=== PATIENT | male | born 1995 | race Caucasian/White ===

== ENCOUNTER 2016-12-20 21:16 | Emergency (ER) | payer SELFPAY ==
[~2016-12-20] VITALS: Ht 167.6 cm; Wt 100.0 kg
[~2016-12-20 21:16] MED LIST: DICY10CA60 PO; ONDA4TAB35 PO
[2016-12-20 21:28] VITALS: Ht 167.6 cm; Wt 100.0 kg
--- NOTE | 2016-12-20 23:37 | ERD ---
ER Documentation Chief Complaint Chief Complaint RASH ON SCALP AND BOTH HANDS SINCE YESTERDA. NEW SOAP HPI 21-year-old male presents here in emergency department for rash over the body after her throat for the last 2 days, patient also has been having body aches and on and off fever. Patient does not have any sick contacts. ROS All systems reviewed and are negative except as per history of present illness. Medications Home Meds Active Scripts Ondansetron Hcl* (Zofran* ODT) 4 mg -ODT Tab.disper, 4 MG PO Q8 Y for NAUSEA AND /OR VOMITING, #30 TAB Prov:LYLE PITT CONTRACT ATTORNEY 05/26/15 Dicyclomine Hcl* (Bentyl*) 10 Mg Capsule, 10 MG PO QID for abdominal cramping, # 20 CAP Prov:LYLE PITT CONTRACT ATTORNEY 05/26/15 Reported Medications [none] Unknown Strength No Conflict Check 05/26/15 Allergies Allergies: Coded Allergies: No Known Allergy (Unverified , 06/23/14) PMhx/Soc Medical and Surgical Hx: pt denies Medical Hx History of Surgery: Yes (JAW ) Anesthesia Reaction: No Hx Neurological Disorder: No Hx Respiratory Disorders: No Hx Cardiac Disorders: No Hx Psychiatric Problems: No Hx Miscellaneous Medical Probl: No Hx Alcohol Use: No Hx Substance Use: Yes (MARIJUANA ) Hx Tobacco Use: No Smoking Status: Former smoker FmHx Family History: No coronary disease, No diabetes, No other Physical Exam Vitals Vital Signs Date Time Temp Pulse Resp B/P Pulse Ox O2 Delivery O2 Flow Rate FiO2 12/20/16 21:28 98.7 80 18 136/79 97 Physical Exam GENERAL: The patient is well developed and appropriate for usual state of health, in no apparent distress. CHEST: Clear to auscultation bilaterally. There are no rales, wheezes or rhonchi. HEART: Regular rate and rhythm. No murmurs, clicks, rubs or gallops. No S3 or S4. ABDOMEN: Soft, nontender and nondistended. Good bowel sounds. No rebound or guarding. No gross peritonitis. No gross organomegaly or masses. No Hills sign or McBurney point tenderness. BACK: No midline or flank tenderness. EXTREMITIES: Equal pulses bilaterally. There is no peripheral clubbing, cyanosis or edema. No focal swelling or erythema. Full range of motion. Grossly neurovascularly intact. NEURO: Alert and oriented. Cranial nerves 2-12 intact. Motor strength in all 4 extremities with 5/5 strength. Sensation grossly intact. Normal speech and gait. SKIN: Papular rash noted all over the body. There is no apparent ecchymosis or petechia. The skin is warm and dry. HEMATOLOGIC AND LYMPHATIC: There is no evidence of excessive bruising or lymphedema. No gross cervical, axillary, or inguinal lymphadenopathy. Result Diagram: 12/20/16235412/20/162354 Results 24 hrs Laboratory Tests Test 12/20/16 23:55 White Blood Count 4.610^3/ul Red Blood Count 5.1310^6/ul Hemoglobin 14.4g/dl Hematocrit 43.5% Mean Corpuscular Volume 84.8fl Mean Corpuscular Hemoglobin 28.1pg Mean Corpuscular Hemoglobin Concent 33.1g/dl Red Cell Distribution Width 12.0% Platelet Count 24822^3/UL Mean Platelet Volume 12.1fl Neutrophils % 39.7% Lymphocytes % 37.1% Monocytes % 15.6% Eosinophils % 6.7% Basophils % 0.7% Nucleated Red Blood Cells % 0.0/100WBC Neutrophils # 1.810^3/ul Lymphocytes # 1.710^3/ul Monocytes # 0.710^3/ul Eosinophils # 0.310^3/ul Basophils # 0.010^3/ul Nucleated Red Blood Cells # 0.010^3/ul Sodium Level 145mmol/L Potassium Level 3.7mmol/L Chloride Level 104mmol/L Carbon Dioxide Level 31mmol/L Anion Gap 14 Blood Urea Nitrogen 15mg/dl Creatinine 1.06mg/dl Glucose Level 93mg/dl Calcium Level 9.9mg/dl Total Bilirubin 0.4mg/dl Direct Bilirubin 0.00mg/dl Indirect Bilirubin 0.4mg/dl Aspartate Amino Transf (AST/SGOT) 27IU/L Alanine Aminotransferase (ALT/SGPT) 49IU/L Alkaline Phosphatase 84IU/L Total Protein 8.3g/dl Albumin 4.4g/dl Globulin 3.90g/dl Albumin/Globulin Ratio 1.12 Lipase 203U/L Monoscreen Negative Microbiology RAPID STREP ANTIGEN BY EIA Final RAPID STREP ANTIGEN ,EIA NEGATIVE (Ref Range Neg) Procedures/MDM Medical decision making: Patient symptoms was likely is consistent with viral syndrome, most likely is viral pharyngitis and viral exanthem. No symptoms of any coagulopathies. No symptoms of any contagious rash. No symptoms of any sepsis at this time. Patient appears well and is hemodynamically stable. Prescription was given for Benadryl, ibuprofen, is advised to follow-up with primary care doctor 1-2 days, see event specialist food demonstrator if symptoms continue to persist. Patient was advised to return to emergency department for any worsening symptoms. Disposition: Home. Stable. Departure Diagnosis: Primary Impression: Viral syndrome Condition: Stable Patient Instructions: Self-Care for Skin Rashes, Viral Rash, Exanthem (Child) LYLE PITT NP Dec 20, 2016 23:37
[2016-12-21 00:41] LABS: BASOPHILS % 0.7 % (0.0-2.0); EOSINOPHILS # 0.3 10^3/ul (0.0-0.5); EOSINOPHILS % 6.7 % (0.0-7.0); HEMATOCRIT 43.5 % (42.0-52.0); HEMOGLOBIN 14.4 g/dl (14.0-18.0); LYMPHOCYTES # 1.7 10^3/ul (0.8-2.9); LYMPHOCYTES % 37.1 % (15.0-51.0); MEAN CORPUSCULAR HEMOGLOBIN 28.1 pg (29.0-33.0); MEAN CORPUSCULAR HGB CONC 33.1 g/dl (32.0-37.0); MEAN CORPUSCULAR VOLUME 84.8 fl (82.0-101.0); MEAN PLATELET VOLUME 12.1 fl (7.4-10.4); MONOCYTE # 0.7 10^3/ul (0.3-0.9); MONOCYTES % 15.6 % (0.0-11.0); NEUTROPHIL # 1.8 10^3/ul (1.6-7.5); NEUTROPHILS % 39.7 % (39.0-77.0); PLATELET COUNT 152 10^3/UL (140-415); RED BLOOD COUNT 5.13 10^6/ul (4.70-6.10); WHITE BLOOD COUNT 4.6 10^3/ul (4.8-10.8)
[2016-12-21 01:09] LABS: ALBUMIN 4.4 g/dl (3.3-4.9); ALBUMIN/GLOBULIN RATIO 1.12; BILIRUBIN,INDIRECT 0.4 mg/dl (0-1.1); BILIRUBIN,TOTAL 0.4 mg/dl (0.2-1.3); CALCIUM 9.9 mg/dl (8.4-10.2); CREATININE 1.06 mg/dl (0.61-1.24); POTASSIUM 3.7 mmol/L (3.5-5.1); TOTAL PROTEIN 8.3 g/dl (6.1-8.1)
[2016-12-21] MEDS ORDERED: ACET500C5 PO (01:52)
[2016-12-21] MEDS ORDERED: BEN50 PO (01:52)
[2016-12-21] MEDS ORDERED: IBUP-1542 PO (01:52)
[2016-12-21 02:12] VITALS: BP 123/75; PULSE 67; RESP 16; TEMP 98.4
== END 2016-12-21 02:15 | disposition home or self-care (01) ==
LOC: FTE 21:16
DX: B34.9 Viral infection, unspecified (principal); Z87.891 Personal history of nicotine dependence
CPT/HCPCS: 36415; 80053; 83690; 85025; 86308; 87880; 99283